=== PATIENT | male | born 1955 | race Caucasian/White ===

== ENCOUNTER 2022-08-12 08:22 | Day surgery (SDC) | payer OTHER ==
[~2022-08-12] VITALS: Ht 180.3 cm; Wt 74.9 kg
[~2022-08-12 08:22] MED LIST: AMLO-258 PO; ATOR40TA28 PO; FAMO20TA8 PO; KETO15CR2 TP; LOSA-381 PO; NIAC-8 PO; SODIUM CHLORIDE 0.9% 1,000 ML IV ONE; SODIUM CHLORIDE 0.9% 1,000 ML ONE
[2022-08-12] MEDS ORDERED: LIDOCAINE/PF 2% 5 ML SYRINGE IVP ONE (08:23)
[2022-08-12] MEDS ORDERED: PROPOFOL 1% 20 ML VIAL IVP ONE (08:23)
[2022-08-12 11:04] LABS: BASOPHILS % (AUTO) 0.6 % (0.0-2.0); EOSINOPHILS % (AUTO) 1.7 % (1.0-6.0); HEMATOCRIT 46.5 % (41-53); HEMOGLOBIN 15.7 g/dL (13.5-17.5); LYMPHOCYTES % (AUTO) 23.5 % (22.0-44.0); MEAN CORPUSCULAR HEMOGLOBIN 31.3 pg (26.0-34.0); MEAN CORPUSCULAR HGB CONC 33.8 G/dL (31.0-37.0); MEAN CORPUSCULAR VOLUME 93 fL (80-100); MONOCYTES # (AUTO) 0.7 K/uL (0.1-1.0); MONOCYTES % (AUTO) 8.3 % (2.0-9.0); NEUTROPHILS # (AUTO) 5.7 K/uL (1.8-7.7); NEUTROPHILS % (AUTO) 65.9 % (40.0-70.0); PLATELET COUNT (AUTO) 330 K/uL (150-450); RED BLOOD CELL COUNT(AUTO) 5.02 MIL/uL (4.50-5.90); RED CELL DISTRIBUTION WIDTH 13.4 % (11.5-14.5)
[2022-08-12 11:15] LABS: ANION GAP 8 mmol/L (8-16); CARBON DIOXIDE 28 mmol/L (22-29); CHLORIDE 103 mmol/L (98-107); CREATININE 0.98 mg/dL (0.60-1.30); GLOMERULAR FILTR. RATE CALC > 60 mL/min (>60); GLUCOSE,RANDOM 102 mg/dL (70-110); POTASSIUM 3.9 mmol/L (3.5-5.1); SODIUM SERUM 139 mmol/L (136-145); UREA NITROGEN, BLOOD 12 mg/dL (7-18)
== END 2022-08-12 13:15 | disposition home or self-care (01) ==
LOC: SURGERY 08:22 → EDSEX 08:22 → SURGERY 13:15
PROVIDERS: ATTEND Internal Medicine Gastroenterology
DX: K62.3 Rectal prolapse (principal); K29.50 Unspecified chronic gastritis without bleeding; B96.81 Helicobacter pylori [H. pylori] as the cause of diseases classified elsewhere; Z79.899 Other long term (current) drug therapy; I10 Essential (primary) hypertension; Z86.73 Personal history of transient ischemic attack (TIA), and cerebral infarction without residual deficits; Z98.890 Other specified postprocedural states
CPT/HCPCS: 45378; 43239; 80048; 83735; 84484; 85025; 36415; 88305; 88312; 88313; 93005; C1769; J2704; J3490; J7030

== ENCOUNTER 2022-11-28 19:12 | Emergency (ER) | payer OTHER ==
[~2022-11-28] VITALS: Ht 177.8 cm; Wt 84.0 kg
[~2022-11-28 19:12] MED LIST changes: -SODIUM CHLORIDE 0.9% 1,000 ML IV ONE; -SODIUM CHLORIDE 0.9% 1,000 ML ONE
[2022-11-28 19:49] LABS: BASOPHILS % (AUTO) 0.5 % (0.0-2.0); EOSINOPHILS % (AUTO) 2.2 % (1.0-6.0); HEMATOCRIT 41.5 % (41-53); HEMOGLOBIN 14.2 g/dL (13.5-17.5); LYMPHOCYTES # (AUTO) 2.6 K/uL (1.0-4.8); MEAN CORPUSCULAR HEMOGLOBIN 32.2 pg (26.0-34.0); MEAN CORPUSCULAR HGB CONC 34.3 G/dL (31.0-37.0); MEAN CORPUSCULAR VOLUME 94 fL (80-100); MONOCYTES # (AUTO) 0.8 K/uL (0.1-1.0); MONOCYTES % (AUTO) 10.7 % (2.0-9.0); NEUTROPHILS % (AUTO) 52.6 % (40.0-70.0); PLATELET COUNT (AUTO) 335 K/uL (150-450); RED BLOOD CELL COUNT(AUTO) 4.42 MIL/uL (4.50-5.90); RED CELL DISTRIBUTION WIDTH 13.8 % (11.5-14.5)
[2022-11-28 19:58] LABS: ANION GAP 13 mmol/L (8-16); CALCIUM, TOTAL 8.6 mg/dL (8.8-10.5); CARBON DIOXIDE 23 mmol/L (22-29); CHLORIDE 103 mmol/L (98-107); GLOMERULAR FILTR. RATE CALC 60 mL/min (>60); GLUCOSE,RANDOM 177 mg/dL (70-110); POTASSIUM 3.8 mmol/L (3.5-5.1); SODIUM SERUM 139 mmol/L (136-145)
[2022-11-28 20:04] LABS: ALANINE AMINOTRANSFERASE 27 U/L (12-78); ALBUMIN 3.5 g/dL (3.4-5.0); ALKALINE PHOSPHATASE 81 U/L (46-116); ASPARTATE AMINOTRANSFERASE 14 U/L (15-37); BILIRUBIN,TOTAL 0.3 mg/dL (0.1-1.0); CREATINE KINASE, TOTAL ONLY 74 U/L (39-308); TOTAL PROTEIN, SERUM 7.3 g/dL (6.4-8.2)
[2022-11-28 20:13] VITALS: TEMP 98.4
[2022-11-28 20:18] LABS: B-TYPE NATRIURETIC PEPTIDE < 5 pg/mL (0-100)
[2022-11-28 21:47] LABS: APPEARANCE,URINE CLEAR (CLEAR); BILIRUBIN,URINE NEGATIVE (NEGATIVE); GLUCOSE, URINE (UA) NEGATIVE (NEGATIVE); KETONES,URINE NEGATIVE (NEGATIVE); LEUKOCYTE ESTERASE ,URINE NEGATIVE (NEGATIVE); NITRATE,URINE NEGATIVE (NEGATIVE); OCCULT BLOOD,URINE NEGATIVE (NEGATIVE); PH,URINE 5.5 (5.0-8.0); PROTEIN,URINE NEGATIVE (NEGATIVE); SPECIFIC GRAVITIY, URINE 1.026 (1.003-1.030); UROBILINOGEN,URINE <=1.0 mg/dL (<=1.0)
[2022-11-28 22:04] VITALS: BP 136/88; PULSE 79; RESP 12
== END 2022-11-28 22:18 | disposition home or self-care (01) ==
LOC: EMS 19:14
DX: R41.0 Disorientation, unspecified (principal); E78.00 Pure hypercholesterolemia, unspecified; I10 Essential (primary) hypertension; K92.2 Gastrointestinal hemorrhage, unspecified
CPT/HCPCS: 70450; 71045; 80053; 81003; 82550; 83735; 83880; 84100; 84484; 85025; 93005; 99285; 36415-L1; 36415-TC